=== PATIENT | male | born 1965 | race Caucasian/White ===

== ENCOUNTER 2016-10-06 10:11 | Emergency (ER) | payer OTHER ==
[~2016-10-06] VITALS: Ht 193 cm; Wt 172.2 kg
[2016-10-06] MEDS ORDERED: ASPIRIN 81 MG CHEW (CHILDREN'S ASA) PO ONE (10:25)
[2016-10-06] MEDS ORDERED: SODIUM CHLORIDE FLUSH 10 ML SYR IV PRN (10:25)
[2016-10-06] MEDS ORDERED: SODIUM CHLORIDE FLUSH 3 ML SYR IV PRN (10:25)
[2016-10-06] MEDS ORDERED: NITROGLYCERIN 2% OINTMENT (NITRO-BID) 1 GM UNIT DOSE PACKET TOP ONE (10:25)
[2016-10-06 10:32] LABS: BASOPHILS % (AUTO) 0 % (0-2); EOSINOPHILS # (AUTO) 0.3 10^3uL; EOSINOPHILS % (AUTO) 2 % (0-4); LYMPHOCYTES # (AUTO) 3.6 X10^3; MEAN CORPUSCULAR HEMOGLOBIN 30.2 PG (26.0-34.0); MEAN CORPUSCULAR VOLUME 83 FL (80-100); MEAN PLATELET VOLUME 9.5 FL (6.0-9.5); MONOCYTES # (AUTO) 1.3 X10^3; MONOCYTES % (AUTO) 12 % (3-11); NEUTROPHILS # (AUTO) 5.7 X10^3; NEUTROPHILS % (AUTO) 52 % (51-67); PLATELET COUNT 228 10^3uL (150-450); WHITE BLOOD COUNT 10.99 10^3uL (4.0-11.0)
[2016-10-06 10:41] LABS: ALBUMIN 4.6 g/dL (3.4-5.0); ANION GAP 17.5 MEQ/L (3-15); MEAN CORPUSCULAR HGB CONC 36.5 g/dL (31.0-37.0)
[2016-10-06 12:34] VITALS: BP 109/62
== END 2016-10-06 12:45 | disposition short-term general hospital (02) ==
LOC: ED 10:13
DX: R07.9 Chest pain, unspecified (principal)
CPT/HCPCS: 36415; 71010; 80053; 84484; 85025; 85610; 93005; 93010; 99285

== ENCOUNTER → 2016-10-06 | Outpatient (CLI) | payer OTHER | LOC: EMS 12:50 | PROVIDERS: ATTEND Emergency Medicine | DX: R07.89 Other chest pain (principal); Z95.818 Presence of other cardiac implants and grafts ==

== ENCOUNTER 2017-01-11 09:30 | Outpatient (RCR) | payer OTHER ==
[~2017-01-11 09:30] MED LIST: ASPI-586 PO; ATOR40TA59 PO; LISI1TAB8 PO; MELO-249 PO; METO25TA2 PO; MULT1TAB69 PO; NAPR220T29 PO; NITR0.4T7 SL; RANI150C4 PO; TICA90TA PO
== END 2017-01-12 | disposition home or self-care (01) ==
LOC: CR 09:30
PROVIDERS: ATTEND Family Medicine
DX: I25.10 Atherosclerotic heart disease of native coronary artery without angina pectoris (principal); Z95.818 Presence of other cardiac implants and grafts; Z98.61 Coronary angioplasty status; R07.89 Other chest pain
CPT/HCPCS: 93798

== ENCOUNTER 2017-01-22 09:30 | Outpatient (RCR) | payer OTHER | END 2017-01-25 14:33 | disposition home or self-care (01) | LOC: CR 09:30 | PROVIDERS: ATTEND Family Medicine | DX: I25.10 Atherosclerotic heart disease of native coronary artery without angina pectoris (principal); Z95.818 Presence of other cardiac implants and grafts; Z98.61 Coronary angioplasty status; R07.89 Other chest pain | CPT/HCPCS: 93798 ==